=== PATIENT | female | born 1945 | race Caucasian/White ===

== ENCOUNTER → 2018-10-27 | Outpatient (CLI) | payer OTHER ==
[~2018-10-27] VITALS: Ht 160 cm; Wt 89.1 kg
[~2018-10-27] MED LIST: ATORVASTATIN CA40 MG PO; CELEBREX 200 M200 M1 PO; CENTRUM SILVER1 EAC2 PO; CLONAZEPAM PO; CYMBALTA60 MG PO; GABAPENTIN 100100 MG PO; HYDROCODON-ACE1 EAC5 PO; LIPITOR20 MG PO; LYRICA200 MG PO; MAGOX 400400 MG PO; NEURONTIN 300300 M1 PO; NEXIUM40 MG PO; PROTONIX40 M1 PO; REQUIP XL6 MG PO; TEGRETOL XR100 MG PO; TRAMADOL 50 MG50 MG PO; TRAZODONE HCL50 MG PO; VENLAFAXINE HC150 M1 PO
--- NOTE | ~2018-10-27 | HPC ---
[facility] [address] [place] [address] PAIN MANAGEMENT CONSULTATION Name: TRACI MARIE [id number] Admission: 10/27/18 ������������������ Attend Phys: Peewee Bradley MD Discharge: ������������������ Date of : 47 Report #: [id number] THIS REPORT FOR: //name// CC: Giuliana Bradley DATE OF SERVICE: 10/27/2018 CHIEF COMPLAINT: Severe pain, low back radiating through the left hip and leg. Worsening pain in the right hip over the last 1-2 months. The patient is a 73-year-old who has undergone an extensive lumbar fusion. She has severe pain in her back and her legs. She has a spinal cord stimulator placed by Dr. Correa and it does not seem to be doing much good. She complains that she cannot live any longer with the pain and at this degree, she was nearly in tears throughout her visit today. Pain is worsened by all activities including standing and bending. She gets relief if she lays on ice or sits, but this is limiting her lifestyle and she is becoming more depressed. MEDICATIONS: Pantoprazole, ropinirole, lovastatin, Celebrex, Tegretol, venlafaxine, gabapentin, trazodone, tramadol, magnesium, One A Day women's. She gets relief from tramadol taking it up to four times a day. She had better relief with hydrocodone in the hospital, but has not been able to get it. She was on gabapentin 700, but her primary care physician was uncomfortable writing for that dose and dropped her to 500 mg a day, taking it two, two and one. ALLERGIES: PENICILLIN. PAST MEDICAL HISTORY: Gastritis, diffuse osteoarthritis, stroke in 2009. PAST SURGICAL HISTORY: Cholecystectomy, hysterectomy, left wrist surgery. Back fusion in 2009; left knee surgery in 2011, 2013 and 2015; laminectomy 2018; stimulator placement shortly thereafter in 2018. SOCIAL HISTORY: She is retired over the last 10 years denying tobacco and alcohol. She is . Her is supportive and with her today. REVIEW OF SYSTEMS: Positive for fatigue, weakness, night sweats, decreased appetite. She complains of nocturia. She complains of nervousness and depression. PHYSICAL EXAMINATION: GENERAL: This is a very sad and unhappy woman on the verge of tears throughout her visit today complaining bitterly of pain. [facility] [address] [place] [address] PAIN MANAGEMENT CONSULTATION Name: TRACI MARIE Brandi Room #: REG CLI [facility]#: [id number] Admission: 10/27/18 ������������������ Attend Phys: Peewee Bradley MD Discharge: ������������������ Date of : 47 Report #: [id number] VITAL SIGNS: Her blood pressure 120/56, heart rate 79, respirations are 16 and her BMI is 34.8. She moves from sitting to standing position, walks with a cane, considered a fall risk. CHEST: Clear. CARDIAC: Rhythm is regular. ABDOMEN: Soft. BACK: Examination of the spine reveals a very extensive scarring and palpable hardware throughout the low back. She has limited range of motion of the lumbar spine. NEUROLOGIC: She has difficulty with straight leg raising, reproducing radicular symptom into both legs and hips. It is worst on the left all the way to the ankle. Sensation is intact. IMPRESSION: 1. Severe low back pain with radiculopathy, post-laminectomy with fusion. 2. Failure of spinal cord stimulator therapy. 3. Depression. 4. Osteoarthritis, status post knee replacement. RECOMMENDATION: Epidural steroid injection. We discussed bilateral transforaminal injections. Final procedure was a left transforaminal followed by a midline epidural injection at L2-L3. PROCEDURE: She was taken to fluoroscopic suite. She was placed prone, skin prepped with ChloraPrep. Skin anesthetized first over the left L3-L4 neural foramen. Using triplanar fluoroscopic views, I advanced needle to the neural foramen. I was unable to get a good epidurogram at that location. I did inject a small amount of local anesthetic through the neural foramen. The needle was removed. I then proceeded with a left paramedian epidural injection. Skin was prepped with ChloraPrep and anesthetized and a 20-gauge Tuohy epidural needle advanced into the epidural space using loss of resistance technique. There was no blood or CSF aspirated. A 1 mL of Omnipaque injected. Good spread of dye observed into the epidural space followed by 3 mL of 0.5% lidocaine mixed with 80 mg triamcinolone. She tolerated the procedure well. She was observed for 45 minutes. Her pain score was reduced from 9 to 1 at discharge. I did take the liberty of writing for medication for her today. She was given hydrocodone 10/325, #60 tablets, one tablet to one-half tablet b.i.d. Gabapentin was increased to 300 mg t.i.d. for the neuropathic symptoms. Followup visit planned in one month. ��������������������������������������������� ���������������������������������������� By: ��������������������������������������������� 1845 [id number] Peewee Bradley MD /nt
[2018-10-27 15:05] VITALS: BP 120/56
--- NOTE | 2018-10-27 15:34 | NUR ---
Pain Clinic Assessment: 1. History of Osteoarthritis: HAND History of Rheumatoid Arthritis: Not Applicable 2. Height: 5 ft. 3 in. 160.0 cm. Weight: 196.4 lb. oz. 89.087 kg. Patient's BMI: 34.8 3. Vital Signs: BP: 120/56 Pulse: 79 Resp: 16 Temp: 02 Sat: 98 ECG Mon: 4. Pain Intensity: 9 5. Fall Risk: Dizziness: N Needs help standing or walking: Y Fallen in the last 3 months: N Fall risk comments: 6. Patient on Blood Thinner: None 7. History of Hypertension: N 8. Opioid Therapy greater than 6 weeks: N Opiate Contract Signed: 9. Risk Assessment Tool Provided: LOW RISK 06/16 10. Functional Assessment Tool: 11. Recreational Drug Use: Never Drug Type: Tobacco Use: Never Smoker Tobacco Type: Amount or Packs/day: How Many Years: Alcohol Use: No Frequency: Quant:
== END | disposition home or self-care (01) ==
LOC: PAIN 07:02
DX: M54.16 Radiculopathy, lumbar region (principal); M19.90 Unspecified osteoarthritis, unspecified site; Z96.659 Presence of unspecified artificial knee joint; Z88.0 Allergy status to penicillin; Z86.73 Personal history of transient ischemic attack (TIA), and cerebral infarction without residual deficits; Z90.49 Acquired absence of other specified parts of digestive tract; Z98.890 Other specified postprocedural states

== ENCOUNTER → 2018-11-28 | Outpatient (CLI) | payer OTHER ==
[~2018-11-28] VITALS: Ht 160 cm; Wt 88.1 kg
[~2018-11-28] MED LIST changes: -ATORVASTATIN CA40 MG PO; +LIPITOR40 MG PO; +NORCO 10-325 T1 EACH PO
--- NOTE | ~2018-11-28 | HPC ---
[facility] [address] [address] [place] [address] PAIN MANAGEMENT CONSULTATION Name: TRACI MARIE Room #: REG [facility].#: [id number] Admission: 11/28/18 ������������������ Attend Phys: Peewee Bradley MD Discharge: ������������������ Date of : 47 Report #: [id number] THIS REPORT FOR: //name// CC: Giuliana Bradley DATE OF SERVICE: 11/28/2018 CHIEF COMPLAINT: Followup visit for chronic low back pain with radiculopathy and severe depression. The patient is here today with her . As she did at her last visit, she cried frequently throughout her visit. She complains that the pain is so severe that limits all her activities. She spends much of her time either in a chair or sitting in bed. She says she cannot live like this any longer. She then tells me that she got about 40% pain relief on the right following her epidural steroid injection. Pain is now returning in that level, but overall she still has some sustained improvement. She is not exercising. She has not done physical therapy. All medications were reviewed and reconciled. She is on hydrocodone 10/325 one tablet b.i.d., gabapentin 300 mg 3 times daily. ALLERGIES: PENICILLIN. PHYSICAL EXAMINATION: GENERAL: She is very severely, severely depressed, crying throughout her visit. VITAL SIGNS: Her blood pressure is 126/78, heart rate 78, respirations 20. She is 5 feet 3 inches, 194 pounds, BMI 34.4. She moves from sitting to standing position carefully and cautiously, walks with antalgic gait. She has pain across the lumbosacral segment. She has straight leg raising pain primarily on the left. It follows the hip in an L2-L3 radicular pattern. She has some radicular pain following the L4 distribution into the ankle. IMPRESSION: 1. Severe low back pain with radiculopathy, post-laminectomy with fusion. 2. Failure of spinal cord stimulator therapy. 3. Depression, severe. 4. Osteoarthritis. RECOMMENDATIONS: [facility] [address] [place] [address] PAIN MANAGEMENT CONSULTATION Name: TRACI MARIE Room #: REG [facility] Abdon#: [id number] Admission: 11/28/18 ������������������ Attend Phys: Peewee Bradley MD Discharge: ������������������ Date of : 47 Report #: [id number] 1. Physical therapy. We did not discuss this at last visit, but today, I spent 20-25 minutes in counseling regarding the importance of becoming active as an aid to her chronic depression and her chronic pain. We talked about endogenous endorphins and enkephalins and the body's ability to help if she is willing to make effort. I have written for physical therapy, therapeutic exercise modalities, 3 sessions per week for 4 weeks. Discussed the importance of biopsychosocial therapy, which should be the role of the physical therapist as an encouragement. 2. Lumbar epidural steroid injection repeat L2-L3 under fluoroscopic guidance. PROCEDURE: She was taken to fluoroscopic suite, placed prone, skin prepped with ChloraPrep. Skin anesthetized over the L2-L3 interspace. A 20-gauge needle advanced in the epidural space using loss of resistance technique with no blood or CSF aspirated. A 1 mL of Omnipaque was injected. Good spread of dye was observed in the epidural space, was followed by 3 mL of 0.5% lidocaine mixed with 80 mg triamcinolone. She tolerated the procedure well and was observed for 45 minutes and discharged. 3. Renewal of pain medications under terms of written opioid agreement. She was given hydrocodone 10/325, #60 tablets and gabapentin 300 mg t.i.d. She had previously been on a much higher dose. I would like her to try and decrease her dose to 3 times daily. My parting shot was how important her physical therapy and exercise will be in her recovery and she needs to understand that she has control over that aspect of her care. Twenty five minutes in consultation followed by injection. ��������������������������������������������� ���������������������������������������� By: ��������������������������������������������� 1223 0151 Peewee Bradley MD /nt
[2018-11-28 09:17] VITALS: BP 126/78
--- NOTE | 2018-11-28 09:23 | NUR ---
Pain Clinic Assessment: 1. History of Osteoarthritis: HAND History of Rheumatoid Arthritis: Not Applicable 2. Height: 5 ft. 3 in. 160.0 cm. Weight: 194.2 lb. oz. 88.089 kg. Patient's BMI: 34.4 3. Vital Signs: BP: 126/78 Pulse: 78 Resp: 20 Temp: 02 Sat: 95 ECG Mon: 4. Pain Intensity: 10 5. Fall Risk: Dizziness: Y Needs help standing or walking: N Fallen in the last 3 months: N Fall risk comments: 6. Patient on Blood Thinner: None 7. History of Hypertension: N 8. Opioid Therapy greater than 6 weeks: N Opiate Contract Signed: 9. Risk Assessment Tool Provided: LOW RISK 06/16 10. Functional Assessment Tool: 11. Recreational Drug Use: Never Drug Type: Tobacco Use: Never Smoker Tobacco Type: Amount or Packs/day: How Many Years: Alcohol Use: No Frequency: Quant:
== END | disposition home or self-care (01) ==
LOC: PAIN 06:44
DX: M54.16 Radiculopathy, lumbar region (principal); G89.29 Other chronic pain; M19.90 Unspecified osteoarthritis, unspecified site; F32.9 Major depressive disorder, single episode, unspecified; Z88.0 Allergy status to penicillin; Z98.890 Other specified postprocedural states; Z79.891 Long term (current) use of opiate analgesic

== ENCOUNTER → 2019-02-06 | Outpatient (CLI) | payer OTHER ==
[~2019-02-06] VITALS: Ht 160 cm; Wt 86.6 kg
[~2019-02-06] MED LIST changes: +DUREZOL5 ML OPHTHALMIC; +ILEVRO1.7 ML OPHTHALMIC; +INVELTYS2.8 ML OPHTHALMIC
--- NOTE | ~2019-02-06 | HPC ---
[facility] [address] [email or web address] [address] PAIN MANAGEMENT CONSULTATION Name: TRACI MARIE Room #: REG [facility] Abdon#: [id number] Admission: 02/06/19 ������������������ Attend Phys: Peewee Bradley MD Discharge: ������������������ Date of : 47 Report #: [id number] THIS REPORT FOR: //name// CC: Giuliana Bradley DATE OF SERVICE: 02/06/2019 Followup visit for chronic low back pain and radiculopathy, right hip pain. The patient returns today with her . As before, she does much of the speaking for her. I will say that her affect is more pleasant today and she does not seem as depressed as she did on 11/28/2018 when I saw her. She still complains, however, of pain at a 6-7/10. She reports that her spinal cord stimulator is not working as well as she would like. She has a [employer] stimulator and has only had a few adjustments. I have suggested that she make sure and explore the stimulator thoroughly before giving up on it. Dr. Correa has talked about possibly moving her leads. She is doing some things at home including cooking, walking and is a bit more stable. She had two falls in December but no significant injury. She complains of pain along the right lateral hip, it is worse with standing. This does not radiate much and it may not be related to radiculopathy. PQRS REVIEW: 1. Positive for osteoarthritis involving spine and hands. 2. BMI is 33.8. She is 5 feet 3 inches, 191 pounds. 3. VITAL SIGNS: Blood pressure 131/56, heart rate 81, respirations 16, O2 sat 93. 4. Pain intensity 6-7/10, which varies. 5. She is a fall risk and has fallen within the last 3 months. She has had two falls, one on 12/16/2018 and one on 01/02/2019. We have discussed the importance of being careful and cautious in her movements. 6. She is on no blood thinners. 7. She does not receive treatment for hypertension. 8. She is not on opioid therapy at this time and has not signed an opioid contract. 9. She has completed an opioid risk tool, however, and her risk is considered low. 10. Her functional assessment score is 59/70 suggesting extreme involvement of pain in day-to-day activities. She denies use of tobacco. She denies use of alcohol and does not use marijuana for recreation or for pain. PHYSICAL EXAMINATION: [facility] [address] [place] [address] PAIN MANAGEMENT CONSULTATION Name: TRACI MARIE Room #: REG [facility]#: [id number] Admission: 02/06/19 ������������������ Attend Phys: Peewee Bradley MD Discharge: ������������������ Date of : 47 Report #: [id number] GENERAL: Affect is more pleasant and relaxed today, not as depressed. VITAL SIGNS: As noted above. She has a facial tic. She closes her eyes frequently during discussions. CHEST: Clear. CARDIAC: Rhythm is regular. Her ambulation is antalgic. Examination of the spine reveals tenderness across the lumbosacral segment. She continues to have straight leg raising primarily on the left, but has pain in the right hip with internal and external rotation. There is tenderness over the greater trochanter and posteriorly into the buttocks. IMPRESSION: 1. Chronic low back pain with radiculopathy, post-laminectomy syndrome. Failed back. 2. Failure of spinal cord stimulator therapy. 3. Depression. 4. Osteoarthritis. 5. Complaints of right hip pain, possible osteoarthritic right hip. RECOMMENDATIONS: 1. I recommend a right hip x-ray. I have also x-rayed the pelvis to examine the left hip. 2. She reports that she has had some improvement with her epidural injections. We will consider this as a further treatment in the future. 3. I have renewed gabapentin for her at 300 mg 3 times daily. She is currently not taking an opioid. 4. I renewed physical therapy for her. She did not use my last prescription. We re-dated it and ordered evaluation, treatment for balance, mobility and gait therapeutic exercise, and modalities as needed. Plan is to see her back on an as needed basis. ��������������������������������������������� ���������������������������������������� By: ��������������������������������������������� 1630 2229 Peewee Bradley MD /nt
[2019-02-06 12:59] VITALS: BP 131/56
--- NOTE | 2019-02-06 13:14 | NUR ---
Pain Clinic Assessment: 1. History of Osteoarthritis: HAND History of Rheumatoid Arthritis: Not Applicable 2. Height: 5 ft. 3 in. 160.0 cm. Weight: 191.0 lb. oz. 86.637 kg. Patient's BMI: 33.8 3. Vital Signs: BP: 131/56 Pulse: 81 Resp: 16 Temp: 02 Sat: 93 ECG Mon: 4. Pain Intensity: 6-7, VARIES 5. Fall Risk: Dizziness: N Needs help standing or walking: Y Fallen in the last 3 months: Y Fall risk comments: HAS HAD 2 FALLS 12/16/18 AND 01/02/19 6. Patient on Blood Thinner: None 7. History of Hypertension: N 8. Opioid Therapy greater than 6 weeks: N Opiate Contract Signed: 9. Risk Assessment Tool Provided: LOW RISK 06/16 10. Functional Assessment Tool: 11. Recreational Drug Use: Never Drug Type: Tobacco Use: Never Smoker Tobacco Type: Amount or Packs/day: How Many Years: Alcohol Use: No Frequency: Quant:
== END ==
LOC: PAIN 06:54
DX: M16.11 Unilateral primary osteoarthritis, right hip (principal); M54.16 Radiculopathy, lumbar region; M96.1 Postlaminectomy syndrome, not elsewhere classified; F32.9 Major depressive disorder, single episode, unspecified; G89.29 Other chronic pain; M54.5 Low back pain

== ENCOUNTER → 2019-04-13 | Outpatient (CLI) | payer OTHER ==
[~2019-04-13] VITALS: Ht 160 cm; Wt 85.5 kg
--- NOTE | ~2019-04-13 | HPC ---
[facility] [address] [address] PAIN MANAGEMENT CONSULTATION Name: TRACI MARIE Room #: REG [facility]don#: [id number] Admission: 04/13/19 Attend Phys: Peewee Bradley MD Discharge: Date of : 47 Report #: [id number] THIS REPORT FOR: //name// CC: Giuliana Bradley DATE OF SERVICE: 04/13/2019 Followup visit for chronic pain. I have seen the patient now on a few occasions for chronic pain at her last visit in January. Her primary pain in the past was low back pain with radiculopathy into the right hip, although this is still somewhat of a complaint, she spent most of the day today discussing headache. Apparently, she fell striking her head against the cabinet on the crown just to the right. It has now been over 2 weeks and she has had persistent pain in that location. She says the pain is 10/10, although she tends to use high numbers whenever she exaggerates her pain as she has been highly emotional my clinic in the past. She was better today than she was on her first visit. She has had a CT scan of the area, which was negative. An MRI has not been performed. She has been taking hydrocodone prescribed through our clinic in the past. She is cautious about the use and has taken no more than one to two tablets in a single day. It does provide some measure of relief. MEDICATIONS: Reviewed and reconciled. PQRS REVIEW: 1. Positive for osteoarthritis, lumbar spondylosis, and in her hands. 2. BMI is 33.4. 3. Blood pressure 129/62, heart rate 80, respirations 18. 4. Pain intensity 10/10. 5. She has some dizziness and has had two falls on 12/16/2018 and 01/02/2019. She is clearly a fall risk and was counseled. 6. The patient is on no blood thinners. 7. No history of hypertension. 8. No opioid agreement, although she has been on low dose opioid therapy. 9. She has completed an opioid risk tool and her score is 1/3. 10. Functional assessment score is 59/70. She is really limited in many ways by her pain. 11. Denies use of tobacco and alcohol. [address] [address] PAIN MANAGEMENT CONSULTATION Name: TRACI MARIE Room #: REG [facility]#: [id number] Admission: 04/13/19 Attend Phys: Peewee Bradley MD Discharge: Date of : 47 Report #: [id number] PHYSICAL EXAMINATION: GENERAL: She is pleasant female, but appears depressed. She did cry a couple of times during her visit, but quickly lightened up. Her does answers a lot of questions for her. VITAL SIGNS: As noted above. She can independently move from sitting to standing position. Her gait is slightly steady. HEENT: Reveals pupils to be equal, round, reactive to light. EOMs are intact. Mucous membranes are moist. Cranial nerves exam 2 through 12 was completed without any obvious abnormalities. NECK: Supple. CHEST: Clear to auscultation. CARDIAC: Rhythm is regular. ABDOMEN: Soft. MUSCULOSKELETAL: Examination of the head reveals no bruising, swelling or tenderness. She locates the pain just off the crown to the right. IMPRESSION: 1. Chronic pain. 2. History of diffuse back pain with radiculopathy, post-laminectomy syndrome with fusion. 3. History of depression. 4. Osteoarthritis. 5. New onset head pain, which has now been persistent for 3 weeks and troublesome enough that is her primary complaint. RECOMMENDATIONS: I have recommended an MRI. She will follow up with a neurologist next week. That study will be available for her visit. I ordered it without contrast. I renewed her hydrocodone. We discussed the importance of safeguarding medication carefully so that there is no diversion. She is grateful for the benefits that they provide. By: [id number] Peewee Bradley MD /nt
[2019-04-13 14:40] VITALS: BP 129/62
--- NOTE | 2019-04-13 14:55 | NUR ---
Pain Clinic Assessment: 1. History of Osteoarthritis: HAND BACK History of Rheumatoid Arthritis: Not Applicable 2. Height: 5 ft. 3 in. 160.0 cm. Weight: 188.6 lb. oz. 85.548 kg. Patient's BMI: 33.4 3. Vital Signs: BP: 129/62 Pulse: 80 Resp: 18 Temp: 02 Sat: 98 ECG Mon: 4. Pain Intensity: 10 5. Fall Risk: Dizziness: Y Needs help standing or walking: N Fallen in the last 3 months: N Fall risk comments: HAS HAD 2 FALLS 12/16/18 AND 01/02/19 6. Patient on Blood Thinner: None 7. History of Hypertension: N 8. Opioid Therapy greater than 6 weeks: N Opiate Contract Signed: 9. Risk Assessment Tool Provided: LOW RISK 06/16 10. Functional Assessment Tool: 11. Recreational Drug Use: Never Drug Type: Tobacco Use: Never Smoker Tobacco Type: Amount or Packs/day: How Many Years: Alcohol Use: No Frequency: Quant:
== END ==
LOC: PAIN 07:09
DX: G89.29 Other chronic pain (principal); M96.1 Postlaminectomy syndrome, not elsewhere classified; M19.90 Unspecified osteoarthritis, unspecified site; F32.9 Major depressive disorder, single episode, unspecified; Z79.891 Long term (current) use of opiate analgesic; Z79.899 Other long term (current) drug therapy

== ENCOUNTER → 2019-06-01 | Outpatient (CLI) | payer OTHER ==
[~2019-06-01] VITALS: Ht 160 cm; Wt 86.3 kg
[~2019-06-01] MED LIST changes: +IRON325 M1 PO; +PRILOSEC OTC20 MG PO
[2019-06-01 13:16] VITALS: BP 111/60
--- NOTE | 2019-06-01 13:36 | NUR ---
Pain Clinic Assessment: 1. History of Osteoarthritis: HAND BACK HIPS History of Rheumatoid Arthritis: Not Applicable 2. Height: 5 ft. 3 in. 160.0 cm. Weight: 190.2 lb. oz. 86.274 kg. Patient's BMI: 33.7 3. Vital Signs: BP: 111/60 Pulse: 72 Resp: 16 Temp: 02 Sat: 100 ECG Mon: 4. Pain Intensity: 10 5. Fall Risk: Dizziness: N Needs help standing or walking: Y Fallen in the last 3 months: Y Fall risk comments: HAS HAD 2 FALLS 12/16/18 AND 01/02/19 6. Patient on Blood Thinner: None 7. History of Hypertension: N 8. Opioid Therapy greater than 6 weeks: N Opiate Contract Signed: 9. Risk Assessment Tool Provided: LOW RISK 06/16 10. Functional Assessment Tool: 11. Recreational Drug Use: Never Drug Type: Tobacco Use: Never Smoker Tobacco Type: Amount or Packs/day: How Many Years: Alcohol Use: No Frequency: Quant:
[2019-06-01 13:51] VITALS: BP 151/83
--- NOTE | 2019-06-12 12:21 | HPC ---
[facility] [place] [place] [address] PAIN MANAGEMENT CONSULTATION Name: TRACI MARIE Room #: REG K[facility]AL [facility].#: [id number] Admission: 06/01/19 Attend Phys: Peewee Bradley MD Discharge: Date of : 47 Report #: [id number] THIS REPORT FOR: //name// CC: CHUCHO GODFREY Physician staff Peewee Bradley ____ ____ DATE OF SERVICE: 06/01/2019 CHIEF COMPLAINT: Chronic pain post-laminectomy, left hip pain. The patient is here today with her . She complains bitterly of pain that is high in the gluteal region and is consistent with the gluteal trigger point or gluteal bursitis. She has no other complaints of pain today. She has always been exceedingly emotional and dramatic in our office and has high pain scores across the board. PQRS is positive for osteoarthritis, hand, back and hips. She was sent to physical therapy, but stopped because she said it caused headaches. She is 5 feet 3 inches with a BMI of 33.7. Her blood pressure 111/60, heart rate 72, respirations 16, O2 sat 100, pain intensity as usual 10/10. She has had two falls this year, they were both in December, no falls within the last 3 months. She is more stable on her feet. She denies use of blood thinners or antihypertensive. She is not on an opioid agreement and does not like taking stronger pain medications, we did not prescribe for her. Her functional assessment score is 59 suggesting a very high impact of her pain on her day-to-day activities. She denies recreational drugs, tobacco or alcohol. PHYSICAL EXAMINATION: VITAL SIGNS: As noted above. MUSCULOSKELETAL: Her gait is antalgic. Examination of the hip reveals marked tender point located just below the iliac crest and the insertion site of the gluteus medius muscle. IMPRESSION: Gluteal bursitis. RECOMMENDATION: Injection of gluteal bursa. After informed consent, she was placed in the right lateral decubitus position. The identified area of pain was located just inferior to the rim of the iliac bone. I then injected a total of 8 mL of 0.25% bupivacaine mixed with 40 mg triamcinolone in a fan shaped type injection that surrounded the area of both superior and inferior to the iliac crest. She tolerated the procedure well. [address] [address] PAIN MANAGEMENT CONSULTATION Name: TRACI MARIE Room #: REG [facility].#: [id number] Admission: 06/01/19 Attend Phys: Peewee Bradley MD Discharge: Date of : 47 Report #: [id number] Pain was reduced dramatically to a 0 at discharge. No medications ordered. Followup as needed. <ELECTRONICALLY SIGNED> By: Peewee Bradley MD 06/12/19 1221 [id number] [id number] Peewee Bradley MD /nt
== END | disposition home or self-care (01) ==
LOC: PAIN 07:04
DX: M25.552 Pain in left hip (principal); G89.29 Other chronic pain; M96.1 Postlaminectomy syndrome, not elsewhere classified; Z98.890 Other specified postprocedural states; Z79.899 Other long term (current) drug therapy; Z88.0 Allergy status to penicillin

== ENCOUNTER → 2019-07-06 | Outpatient (CLI) | payer OTHER ==
[~2019-07-06] VITALS: Ht 160 cm; Wt 86.6 kg
[~2019-07-06] MED LIST changes: +BUTALBIT-ACETA1 EACH PO
--- NOTE | ~2019-07-06 | HPC ---
[facility] [place] [address] PAIN MANAGEMENT CONSULTATION Name: TRACI MARIE [id number] Admission: 07/06/19 Attend Phys: Peewee Bradley MD Discharge: Date of : 47 Report #: [id number] THIS REPORT FOR: //name// CC: CHUCHO GODFREY Physician staff Peewee Bradley DATE OF SERVICE: 07/06/2019 REASON FOR VISIT: Followup visit for gluteal bursitis. SUBJECTIVE: The patient returns to the pain clinic today for a repeat injection. She responded very nicely with 1 month of nearly complete pain relief of the area around her left gluteal insertion into the iliac crest. She would like another injection. PQRS REVIEW: Positive for osteoarthritis of hands, back and hips. Her BMI is 33.8. Her blood pressure 127/74, heart rate 76, respirations 16, O2 sat 97. Pain intensity is 7/10. She is a fall risk; she had 2 falls in 2019, but has not fallen in the last 3 months. She is much more cautious. She does use a cane. She is not on blood thinners or antihypertensives. She has taken opioids in the past. I have provided her hydrocodone, but she is hoping to avoid them. She has completed an opioid risk tool and her score is 1, considered lower risk for addiction. Her functional score is 59/70, significant impact on her day-to-day activities by pain. She denies use of tobacco and alcohol. PHYSICAL EXAMINATION: Positive for antalgic gait. Examination of the hips reveals marked tender points just below the iliac crest. This is the insertion site of the gluteus medius, gluteus chari muscle. I have injected this with success. IMPRESSION: Gluteal bursitis. PROCEDURE: Gluteal bursa injection. Skin was prepped with ChloraPrep and a 25-gauge 2-inch needle was used to infiltrate a total of 8 mL this time of 0.5% bupivacaine mixed with 40 mg triamcinolone in a fan shaped fashion. She tolerated the procedure well. Pain was reduced to 0 at discharge. Follow up as needed. By: [id number] Peewee Bradley MD /nt
[2019-07-06 12:43] VITALS: BP 127/74
--- NOTE | 2019-07-06 13:03 | NUR ---
Pain Clinic Assessment: 1. History of Osteoarthritis: HAND BACK HIPS History of Rheumatoid Arthritis: Not Applicable 2. Height: 5 ft. 3 in. 160.0 cm. Weight: 191.0 lb. oz. 86.637 kg. Patient's BMI: 33.8 3. Vital Signs: BP: 127/74 Pulse: 76 Resp: 16 Temp: 02 Sat: 97 ECG Mon: 4. Pain Intensity: 7 5. Fall Risk: Dizziness: N Needs help standing or walking: Y Fallen in the last 3 months: N Fall risk comments: HAS HAD 2 FALLS 12/16/18 AND 01/02/19 6. Patient on Blood Thinner: None 7. History of Hypertension: N 8. Opioid Therapy greater than 6 weeks: N Opiate Contract Signed: 9. Risk Assessment Tool Provided: LOW RISK 06/16 10. Functional Assessment Tool: 11. Recreational Drug Use: Never Drug Type: Tobacco Use: Never Smoker Tobacco Type: Amount or Packs/day: How Many Years: Alcohol Use: No Frequency: Quant:
== END | disposition home or self-care (01) ==
LOC: PAIN 06:45
DX: M70.72 Other bursitis of hip, left hip (principal); G89.29 Other chronic pain; M19.90 Unspecified osteoarthritis, unspecified site; Z98.890 Other specified postprocedural states; Z79.899 Other long term (current) drug therapy; Z79.891 Long term (current) use of opiate analgesic

== ENCOUNTER → 2019-08-21 | Outpatient (CLI) | payer OTHER ==
[~2019-08-21] VITALS: Ht 160 cm; Wt 85.5 kg
--- NOTE | ~2019-08-21 | HPC ---
[facility] [employer] [place] [address] PAIN MANAGEMENT CONSULTATION Name: TRACI MARIE Room #: REG [facility].#: [id number] Admission: 08/21/19 Attend Phys: Peewee Bradley MD Discharge: Date of : 47 Report #: [id number] THIS REPORT FOR: cc: CHUCHO DOYLE Physician not on staff Peewee Brdaley MD ~ CC: CHUCHO Doyle Physician staff Peewee Bradley DATE OF SERVICE: 08/21/2019 Followup visit for chronic pain. The patient is here today with her . I have seen her in the past for a variety of pains, mostly left hip and also post-laminectomy pain. Today, she complains mostly of a right-sided occipital headache. Pain is scored during her initial assessment today as a 7/10. It has been treated with medications, but almost all medications are currently causing hallucinations. She is on some polypharmacy with 4 or 5 centrally acting medicines described below. An MRI does show some changes consistent with degeneration. 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 MEDICATIONS: Atorvastatin, ropinirole, Prilosec, celecoxib, venlafaxine, gabapentin, Topamax discontinued because of hallucinations, trazodone, tramadol once a day at the most. Magnesium, iron, D3, and calcium. PHYSICAL EXAMINATION: Pleasant female, a bit confused, answered some questions. Blood pressure is 118/62, heart rate 83, respirations 16, BMI 34, pain intensity 7. She needs some help standing or walking and would be considered a fall risk. She is on no blood thinners, no treatment for hypertension. Opioid therapy, none. She is at low risk for addiction by the ORT with a score of 1/10. Reveals tenderness below the occiput. She has some tenderness also along the right coronal area and into the temporal region. IMPRESSION: Occipital headache on the right. PROCEDURE: Trigger point/greater occipital nerve injection. Fluoroscopic guidance was used to watch for spread of dye to demonstrate location of medication. After informed consent, she was taken to fluoroscopic suite, placed prone, skin prepped with ChloraPrep. Skin was anesthetized and a 25-gauge 2-inch needle was [address] [address] PAIN MANAGEMENT CONSULTATION Name: TRACI MARIE Brandi Room #: REG [facility]#: [id number] Admission: 08/21/19 Attend Phys: Peewee Bradley MD Discharge: Date of : 47 Report #: [id number] advanced just suboccipital. With the needle resting 1-2 fingerbreadths from the spinous process below the occiput at L1-L2, I injected 0.25 mL of Omnipaque to demonstrate excellent spread. It was then followed by 4 mL of 0.25% bupivacaine mixed with 40 mg of triamcinolone. She tolerated the procedure well. Pain score diminished to 0 in the recovery room. Follow up as needed. No medications were ordered today for the patient. By: [id number] Peewee Bradley MD /nt
[2019-08-21 14:03] VITALS: BP 118/62
--- NOTE | 2019-08-21 14:21 | NUR ---
Pain Clinic Assessment: 1. History of Osteoarthritis: HAND BACK HIPS History of Rheumatoid Arthritis: Not Applicable 2. Height: 5 ft. 3 in. 160.0 cm. Weight: 188.4 lb. oz. 85.458 kg. Patient's BMI: 33.4 3. Vital Signs: BP: 118/62 Pulse: 83 Resp: 16 Temp: 02 Sat: 100 ECG Mon: 4. Pain Intensity: 7 5. Fall Risk: Dizziness: N Needs help standing or walking: Y Fallen in the last 3 months: N Fall risk comments: HAS HAD 2 FALLS 12/16/18 AND 01/02/19 6. Patient on Blood Thinner: None 7. History of Hypertension: N 8. Opioid Therapy greater than 6 weeks: N Opiate Contract Signed: 9. Risk Assessment Tool Provided: LOW RISK 06/16 10. Functional Assessment Tool: 11. Recreational Drug Use: Never Drug Type: Tobacco Use: Never Smoker Tobacco Type: Amount or Packs/day: How Many Years: Alcohol Use: No Frequency: Quant:
== END | disposition home or self-care (01) ==
LOC: PAIN 06:44
DX: M54.81 Occipital neuralgia (principal); G89.29 Other chronic pain; Z98.890 Other specified postprocedural states; Z79.899 Other long term (current) drug therapy; Z88.0 Allergy status to penicillin; Z79.891 Long term (current) use of opiate analgesic

== ENCOUNTER → 2019-09-04 | Outpatient (CLI) | payer OTHER ==
[~2019-09-04] VITALS: Ht 160 cm; Wt 84.9 kg
[~2019-09-04] MED LIST changes: +AMBIEN 5 MG TABL5 M1 PO
--- NOTE | ~2019-09-04 | HPC ---
[facility] [address] [place] [address] PAIN MANAGEMENT CONSULTATION Name: TRACI MARIE Room #: REG [facility].#: [id number] Admission: 09/04/19 Attend Phys: Peewee Bradley MD Discharge: Date of : 47 Report #: [id number] THIS REPORT FOR: cc: CHUCHO GODFREY Physician not on staff Peewee Bradley MD ~ CC: RED GODFREY Physician staff Peewee Bradley DATE OF SERVICE: 09/04/2019 Followup visit for severe occipital headaches, tension type occipital neuralgia. The patient presents to pain clinic today without her who is fearful of coming in due to COVID-19 virus. She is in the car. He did pass notes along to me and I made efforts to answer all of his questions. She got short term relief from the occipital nerve blocks for her headaches and this remains her most prominent pain complaint, although she has others. She complains of back pain as well, but this is limited. One big problem is depression and insomnia. She does not sleep well at night. She does spend a lot of time lying down during the day and is not up. We talked about the importance of remaining up during the day with hopes that this would allow her to sleep better at night and I am willing to give her a prescription for Ambien at the lower dose to see if this will help her with sleep at night. Sleep has a critical component to the long-term management of pain. She has always emotional and chronically depressed in my experience. She also is at times slow mentally and cognitively. I want to be careful about overmedicating her, so lowest doses of medications will be appropriate. We are tapering her gabapentin down and I gave instructions on doing so. Using hydrocodone 10/325 once or twice a day for pain and this seems to be helpful in improving her daily activities. I suggested the addition of caffeine. She does not use it and this can also be helpful from various types of headaches. PQRS: Positive for osteoarthritis, hands and feet. BMI is 33.2. Blood pressure 123/74, heart rate 87, respirations 16, O2 sat 97. She is wearing a mask. She scores her pain relief from her injection at 90% for short duration of 1 week. We may consider further occipital treatments in the future. She denies use of tobacco and alcohol. She is not a fall risk at this time. IMPRESSION: [facility] [address] [place] [address] PAIN MANAGEMENT CONSULTATION Name: TRACI MARIE Room #: REG CL [facility]#: [id number] Admission: 09/04/19 Attend Phys: Peewee Bradley MD Discharge: Date of : 47 Report #: [id number] 1. Chronic pain, multiple pain generators. Occipital headache on the right, severe. 2. Chronic low back pain with radiculopathy. 3. Depression. 4. Insomnia. RECOMMENDATIONS: 1. Taper Neurontin to the lowest effective dose. 2. Use hydrocodone 2 tablets per day and I will renew the prescription. 3. Consider caffeine as a stimulant, which may be helpful. 4. Try to stay up during the day, which can result in inability to sleep at night and loss of diurnal rhythm. Sleep habits were provided. 5. Continue trazodone 2 tablets at bedtime. 6. I will trial Ambien for 1 month. Side effects were discussed with the patient and I have asked her to have her refer to side effects. Discontinue it if side effects are prominent. 7. No injection today. May consider at a later date. 8. Try ice pack or heat to the back of the head and neck. Both can be helpful. Caution with heat to make sure to avoid stovall. 9. may give a gentle 5 minutes soft tissue massage to the neck and the back of the head several times a day if this is helpful. 10. Followup visit in 1-2 months. By: [id number] Peewee Bradley MD /nt
[2019-09-04 10:20] VITALS: BP 123/94
--- NOTE | 2019-09-04 10:32 | NUR ---
Pain Clinic Assessment: 1. History of Osteoarthritis: HAND BACK HIPS History of Rheumatoid Arthritis: Not Applicable 2. Height: 5 ft. 3 in. 160.0 cm. Weight: 187.2 lb. oz. 84.913 kg. Patient's BMI: 33.2 3. Vital Signs: BP: 123/94 Pulse: 87 Resp: 16 Temp: 02 Sat: 97 ECG Mon: 4. Pain Intensity: 7 5. Fall Risk: Dizziness: N Needs help standing or walking: Y Fallen in the last 3 months: N Fall risk comments: HAS HAD 2 FALLS 12/16/18 AND 01/02/19 6. Patient on Blood Thinner: None 7. History of Hypertension: N 8. Opioid Therapy greater than 6 weeks: N Opiate Contract Signed: 9. Risk Assessment Tool Provided: LOW RISK 1 10. Functional Assessment Tool: 11. Recreational Drug Use: Never Drug Type: Tobacco Use: Never Smoker Tobacco Type: Amount or Packs/day: How Many Years: Alcohol Use: No Frequency: Quant:
== END ==
LOC: PAIN 06:43
DX: M54.81 Occipital neuralgia (principal); R51 Headache; G89.4 Chronic pain syndrome; F32.9 Major depressive disorder, single episode, unspecified; G47.00 Insomnia, unspecified

== ENCOUNTER → 2019-10-09 | Outpatient (CLI) | payer OTHER ==
[~2019-10-09] VITALS: Ht 160 cm; Wt 88.5 kg
[~2019-10-09] MED LIST changes: +NEURONTIN300 MG PO; +PROPRANOLOL 4040 MG PO
--- NOTE | ~2019-10-09 | HPC ---
[facility] [place] [address] PAIN MANAGEMENT CONSULTATION Name: TRACI MARIE [facility] [id number] Admission: 10/09/19 Attend Phys: Peewee Bradley MD Discharge: Date of : 47 Report #: [id number] THIS REPORT FOR: cc: RO GODFREY Physician not on staff Peewee Bradley MD ~ CC: Dr. Ro GODFREY Physician staff Peewee Bradley DATE OF SERVICE: 10/09/2019 CHIEF COMPLAINT: Left radiating radicular flank pain. I am seeing the patient today in followup for ongoing low back pain with radiation to the left. She has had extensive prior surgery and a spinal cord stimulator in place. She also suffers from chronic headaches, which are now being managed by a neurologist and all opioids have been discontinued. I will defer any medication decisions to him since he has now assumed that aspect of her care and will try to avoid too many doctors co-prescribing. She has a lumbar fusion from L3 through S1. A year ago, I provided her with a lumbar epidural injection above the level of her fusion when she was having similar radiating symptoms. I have agreed to repeat that injection for her today. Pain intensity is 10/10 affecting many of her activities of daily living. Spinal cord stimulator is not helpful. PQRS is positive for osteoarthritis involving hand, back and hips. BMI 34.6, blood pressure 120/56, heart rate 72, respirations 14, O2 sat 95. Pain intensity 10/10. She has had two falls, but none in the last 3 months. She is on no blood thinners and is not treated for hypertension. She does not have an opioid agreement on her chart. She has completed an opioid risk tool scoring 1, which is considered low risk for addiction. Because of her high pains, her functional assessment score is also high at 59/70 and they are anxious to proceed if we can with an injection. PHYSICAL EXAMINATION: Pleasant female, wearing a mask, as we all are, because of the COVID restrictions. Her blood pressure one is noted above. She can move independently and walk without antalgic features. She has pain with lateral ____ to the right and left, but the pain reproduces to the left. It follows below the rib cage along the top of her iliac crest and down into the range of T12-L1. [address] [address] PAIN MANAGEMENT CONSULTATION Name: TRACI MARIE Room #: REG [facility]#: [id number] Admission: 10/09/19 Attend Phys: Peewee Bradley MD Discharge: Date of : 47 Report #: [id number] IMPRESSION: Lumbar thoracic radiculopathy, degenerative disk at L1-T12. PROCEDURE: T12-L1 epidural injection under fluoroscopic guidance. She was taken to fluoroscopic suite, placed prone, skin prepped with ChloraPrep. Skin anesthetized over T12-L1. A 20-gauge Tuohy epidural needle advanced in the epidural space at that level using loss of resistance. There was no blood or CSF aspirated. A 1 mL of Omnipaque was injected. Spread of dye observed into the epidural space, was followed by 3 mL of 0.5% lidocaine mixed with 80 mg triamcinolone. She tolerated the procedure well. Pain score was 0 at discharge. Followup as needed. By: [id number] Peewee Bradley MD /nt
[2019-10-09 13:34] VITALS: BP 120/56
--- NOTE | 2019-10-09 13:49 | NUR ---
Pain Clinic Assessment: 1. History of Osteoarthritis: HAND BACK HIPS History of Rheumatoid Arthritis: DENIES 2. Height: 5 ft. 3 in. 160.0 cm. Weight: 195.0 lb. oz. 88.452 kg. Patient's BMI: 34.6 3. Vital Signs: BP: 120/56 Pulse: 72 Resp: 14 Temp: 02 Sat: 95 ECG Mon: 4. Pain Intensity: 10 5. Fall Risk: Dizziness: N Needs help standing or walking: N Fallen in the last 3 months: N Fall risk comments: HAS HAD 2 FALLS 12/16/18 AND 01/02/19 6. Patient on Blood Thinner: None 7. History of Hypertension: N 8. Opioid Therapy greater than 6 weeks: N Opiate Contract Signed: 9. Risk Assessment Tool Provided: LOW RISK 1 10. Functional Assessment Tool: 11. Recreational Drug Use: Never Drug Type: Tobacco Use: Never Smoker Tobacco Type: Amount or Packs/day: How Many Years: Alcohol Use: No Frequency: Quant:
== END | disposition home or self-care (01) ==
LOC: PAIN 07:01
DX: M51.15 Intervertebral disc disorders with radiculopathy, thoracolumbar region (principal); G89.29 Other chronic pain; M19.90 Unspecified osteoarthritis, unspecified site; Z98.890 Other specified postprocedural states; Z79.899 Other long term (current) drug therapy; Z88.0 Allergy status to penicillin

== ENCOUNTER → 2020-01-01 | Outpatient (CLI) | payer OTHER ==
[~2020-01-01] VITALS: Ht 160 cm; Wt 89.8 kg
[~2020-01-01] MED LIST changes: +MS CONTIN15 MG PO
--- NOTE | ~2020-01-01 | HPC ---
[facility] [place] [address] [place] [address] PAIN MANAGEMENT CONSULTATION Name: TRACI MARIE Room #: REG [facility]#: [id number] Admission: 01/01/20 Attend Phys: Peewee Bradley MD Discharge: Date of : 47 Report #: [id number] THIS REPORT FOR: cc: CHUCHO DOYLE Physician not on staff Peewee Bradley MD ~ CC: Srini Doyle Physician staff Peewee Bradley DATE OF SERVICE: 01/01/2020 REASON FOR VISIT: Followup visit for excruciating chronic pain. SUBJECTIVE: The patient cried through most of her visit today, scoring her pain as a 10/10. Pain impact score also ____, suggesting dramatic influence of her pain on her day-to-day activities. I have seen her for a few years and the last visit I had with her was in September. An epidural injection provided some relief. Today, however, she says her pain is so excruciating when she stands that she cannot stand it. She is okay if she is in bed. Pain radiates to her left flank and down into her left leg. It has more of a dermatomal distribution today. She has had prior surgery. She has a spinal cord stimulator, it is no longer effective. She has pain medication at home, but is reluctant to take it. I am not sure why. First, she was here without her . I asked for him to come back. He says that they just do not take it. I understand that if they do not want to use the pain medicine, that is fine, but it is there for their use to experiment and see if they can get some relief so that she can have some quality of life. At this point in time, we do not have a lot more to offer her other than some simple injections. She has had a number of procedural things that have not alleviated pain. We had a lengthy discussion today about opioids, the opioid risks and benefits, and I am going to rotate her to MS Contin 15 mg b.i.d.; we can titrate that upwards if she can tolerate it. She is already on a number of other centrally acting medications. All medications were reviewed and reconciled. She is on ropinirole, higher doses for restless legs; venlafaxine, also high dose for depression ____ trazodone, multivitamins, omeprazole, ferrous sulfate, Inderal, gabapentin 300 mg 1 to 3 tablets b.i.d. PHYSICAL EXAMINATION: [address] [address] PAIN MANAGEMENT CONSULTATION Name: TRACI MARIE Room #: REG [facility].#: [id number] Admission: 01/01/20 Attend Phys: Peewee Bradley MD Discharge: Date of : 47 Report #: [id number] GENERAL: She is a very depressed, crying female. VITAL SIGNS: Blood pressure is 120/56, heart rate 72, respirations 14. She is 5 feet 3 inches, BMI is 34.6. Pain intensity is 10/10. She is a fall risk. She fell twice in the last couple of weeks, and is using a walker. We discussed the importance of careful movements and having her present when she is going to go any distance at all. She is on no blood thinners, is not treated for hypertension. She is not on an opioid agreement as we have not established a long-term medication for her. She is considered at low risk for addiction on the ORT. Functional assessment score is high at 59 to 60. She denies use of tobacco and alcohol. IMPRESSION: Chronic intractable low back pain with radiation. Lumbar radiculopathy. Status post spinal cord stimulator with failure. RECOMMENDATION: Today, I would like to try transforaminal epidural injection at L3-L4 using a larger volume of medicine along the left lateral recess. Potential benefits and risks of the injection were discussed with her and with the patient, and she would like to proceed. PROCEDURE: After informed consent, she was taken to the fluoroscopic suite, placed prone, skin prepped with ChloraPrep. Skin was anesthetized over the L3-L4 neural foramen. Using triplanar fluoroscopic views, I advanced the needle into the epidural space. No blood or CSF was aspirated. A 0.25 mL of Omnipaque was injected. Good spread of dye was observed in the epidural space, followed by 3 mL of 0.5% lidocaine mixed with 80 mg of triamcinolone. She tolerated the procedure well. There were no complications. She was taken to recovery room for observation. Followup visit is planned in 1 to 2 months; may consider repeating the injection depending on response. By: [id number] Peewee Bradley MD /nt
[2020-01-01 14:17] VITALS: BP 127/62
--- NOTE | 2020-01-01 14:37 | NUR ---
Pain Clinic Assessment: 1. History of Osteoarthritis: HAND BACK HIPS History of Rheumatoid Arthritis: DENIES 2. Height: 5 ft. 3 in. 160.0 cm. Weight: 198.0 lb. oz. 89.812 kg. Patient's BMI: 35.1 3. Vital Signs: BP: 127/62 Pulse: 82 Resp: 16 Temp: 02 Sat: 95 ECG Mon: 4. Pain Intensity: 10 5. Fall Risk: Dizziness: N Needs help standing or walking: Y Fallen in the last 3 months: N Fall risk comments: HAS HAD 2 FALLS 12/16/18 AND 01/02/19 6. Patient on Blood Thinner: None 7. History of Hypertension: N 8. Opioid Therapy greater than 6 weeks: N Opiate Contract Signed: 9. Risk Assessment Tool Provided: LOW RISK 1 10. Functional Assessment Tool: 60/70 11. Recreational Drug Use: Never Drug Type: Tobacco Use: Never Smoker Tobacco Type: Amount or Packs/day: How Many Years: Alcohol Use: No Frequency: Quant:
== END | disposition home or self-care (01) ==
LOC: PAIN
PROVIDERS: ATTEND Anesthesiology Pain Medicine
DX: M54.16 Radiculopathy, lumbar region (principal); G89.29 Other chronic pain; Z98.890 Other specified postprocedural states; Z79.899 Other long term (current) drug therapy; Z87.891 Personal history of nicotine dependence